=== PATIENT | male | born 1955 | race Caucasian/White ===

== ENCOUNTER 2020-10-15 10:53 | Outpatient (REF) | payer MEDICARE, SELFPAY ==
[2020-10-15 14:36] LABS: Alanine Aminotransferase 29 U/L (0-40); Albumin Level 4.7 g/dL (3.5-5.0); Alkaline Phosphatase 70 U/L (39-117); Aspartate Amino Transferase 34 U/L (5-37); Bilirubin Direct 0.2 mg/dL (0.0-0.5); Bilirubin Total 0.5 mg/dL (0.0-1.0); Total Protein 7.1 g/dL (6.5-8.0)
[2020-10-17 18:51] LABS: Lutenizing Hormone 45.9 mIU/mL (1.6-15.2)
[2020-10-19 21:52] LABS: Testosterone, Total 443 ng/dL (250-1100)
[2020-10-21 22:42] LABS: Dihydrotestosterone 36 ng/dL (12-65); Progesterone 0.1 ng/mL
[2020-10-24 00:17] LABS: Estradiol Free 0.48 pg/mL; Estradiol, Ultrasensitive 31 pg/mL
== END 2020-10-15 10:54 | disposition home or self-care (01) ==
LOC: HO.HMGCLDS 10:53
PROVIDERS: PCP Internal Medicine; Visit Provider Nurse Practitioner Family
DX: N63.0 Unspecified lump in unspecified breast (principal)
CPT/HCPCS: 36415; 80076; 82642; 82670; 82672; 82681; 83002; 84144; 84403

== ENCOUNTER 2020-11-02 12:46 | Outpatient (REF) | payer MEDICARE, SELFPAY ==
--- NOTE | ~2020-11-02 | US_ITS ---
EXAMINATION: US DIAGNOSTIC ULTRASOUND BREAST, RIGHT US DIAGNOSTIC ULTRASOUND BREAST, LEFT CLINICAL INFORMATION: 65-year-old male with fullness and tenderness subareolar right breast for 3-4 months. No discharge. No known family history breast cancer. COMPARISON: Bilateral targeted breast ultrasound 04/22/2011. TECHNIQUE: Ultrasound of the bilateral breasts is performed with real-time robert scale imaging and color Doppler. Exam is targeted to the periareolar and subareolar regions on both sides. Patient declined 3D digital breast tomosynthesis. FINDINGS: Right: There is borderline subareolar gynecomastia pattern immediately beneath the nipple. There is no cystic or solid mass or duct ectasia. No hyperemia. No architectural abnormality. No skin thickening or edema tracking in the soft tissue planes. Left: There is no solid mass, architectural abnormality, duct ectasia, or edema in the soft tissue planes. Results are discussed with the patient at time of visit. US/US breast RT limited IMPRESSION: 1. Right: Mild/trace subareolar gynecomastia. 2. Left: Unremarkable. ASSESSMENT: BI-RADS 2: Benign RECOMMENDATION: Patient should be managed based on the clinical impression as needed. If clinically indicated, further evaluation may be considered with surgical consult. Decision to proceed with biopsy should be based on clinical grounds and degree of clinical concern.
--- NOTE | ~2020-11-02 | US_ITS ---
EXAMINATION: US DIAGNOSTIC ULTRASOUND BREAST, RIGHT US DIAGNOSTIC ULTRASOUND BREAST, LEFT CLINICAL INFORMATION: 65-year-old male with fullness and tenderness subareolar right breast for 3-4 months. No discharge. No known family history breast cancer. COMPARISON: Bilateral targeted breast ultrasound 04/22/2011. TECHNIQUE: Ultrasound of the bilateral breasts is performed with real-time robert scale imaging and color Doppler. Exam is targeted to the periareolar and subareolar regions on both sides. Patient declined 3D digital breast tomosynthesis. FINDINGS: Right: There is borderline subareolar gynecomastia pattern immediately beneath the nipple. There is no cystic or solid mass or duct ectasia. No hyperemia. No architectural abnormality. No skin thickening or edema tracking in the soft tissue planes. Left: There is no solid mass, architectural abnormality, duct ectasia, or edema in the soft tissue planes. Results are discussed with the patient at time of visit. US/US breast LT limited IMPRESSION: 1. Right: Mild/trace subareolar gynecomastia. 2. Left: Unremarkable. ASSESSMENT: BI-RADS 2: Benign RECOMMENDATION: Patient should be managed based on the clinical impression as needed. If clinically indicated, further evaluation may be considered with surgical consult. Decision to proceed with biopsy should be based on clinical grounds and degree of clinical concern.
== END 2020-11-02 12:47 | disposition home or self-care (01) ==
LOC: HO.MAMMO 12:46
PROVIDERS: Visit Provider Internal Medicine
DX: N64.4 Mastodynia (principal)
CPT/HCPCS: 76642

== ENCOUNTER 2020-12-08 09:25 | Outpatient (REF) | payer MEDICARE, SELFPAY ==
[2020-12-08 12:20] LABS: Alanine Aminotransferase 25 U/L (0-40); Albumin Level 4.7 g/dL (3.5-5.0); Alkaline Phosphatase 81 U/L (39-117); Anion Gap 15 (12-20); Aspartate Amino Transferase 33 U/L (5-37); Bilirubin Total 0.6 mg/dL (0.0-1.0); Blood Urea Nitrogen 19 mg/dL (9-16); Calcium 9.7 mg/dL (8.4-10.2); Carbon Dioxide 24 mmol/L (22-29); Chloride 106 mmol/L (96-108); Cholesterol 250 mg/dL; Estimated Glomerular Filt Rate > 60; Glucose Fasting 98 mg/dL (60-99); HDL Cholesterol 59 mg/dL; LDL Cholesterol Calculated 172 mg/dl; Potassium 4.2 mmol/L (3.3-5.1); Sodium 141 mmol/L (135-145); TSH reflex Free T4 0.83 uIU/mL (0.32-4.0); Total Protein 7.3 g/dL (6.5-8.0); Triglycerides 97 mg/dL
== END 2020-12-08 09:26 | disposition home or self-care (01) ==
LOC: HO.HMGCLDS 09:25
PROVIDERS: PCP Internal Medicine; Visit Provider Internal Medicine
DX: N62 Hypertrophy of breast (principal); E78.5 Hyperlipidemia, unspecified; E22.8 Other hyperfunction of pituitary gland; N50.9 Disorder of male genital organs, unspecified
CPT/HCPCS: 36415; 80053; 80061; 84443

== ENCOUNTER 2024-03-28 15:09 | Outpatient (AMB) | payer MEDICARE, SELFPAY ==
--- NOTE | 2024-03-28 15:15 | AM.OFFWIN_ITS ---
Intake Vital Signs 03/28/24 15:16 Height 5 ft 5 in Weight 144 lb BMI 24.0 BP 118/70 Blood Pressure Location Rt brachial Position Sitting Pulse 81 Pulse Source Pulse Oximeter Temp 97.9 F Temp Source Oral Pulse Oximetry (%) 97 Oxygen Delivery Method Room Air Intake Visit Reasons: EP- Bloody nose, non stop Intake Note: pt c/o bloody nose. Started around noon today. Intermittent Patient Tobacco Use Status: Never used Tobacco Allergies No Known Allergies Allergy (Mild, Verified 03/28/24 15:25) NO REACTIONS KNOWN Do you need a note to return to daycare/school/sports/work: No HPI HPI Comments History of Present Illness Details Patient is a 69-year-old male complaining of a nosebleed on the right side that started this morning. He states gets them every now and then because he cracked his nose and picks at it a lot. He has used a rhino rocket in the past with success but he ran out and ordered more on [employer] but they will not be here something similar at [facility] but he is concerned because it is still bleeding. Patient states he does use a humidifier at night. [facility] Social History Alcohol intake: former Patient Tobacco Use Status: Never used Tobacco Review of Systems Const All systems reviewed & are unremarkable except as noted in HPI and below Physical Exam Vital Signs: Last Vital Signs Temp 97.9 F 03/28/24 15:16 Pulse 81 03/28/24 15:16 BP 118/70 03/28/24 15:16 Pulse Ox 97 03/28/24 15:16 Oxygen Delivery Method Room Air 03/28/24 15:16 BMI result Body Mass Index 24.0 Const General: cooperative, healthy appearing, comfortable, no acute distress and well developed Orientation/consciousness: patient oriented x3 Limitations: no limitations HEENT Head: Yes normal to inspection General nose exam: Normal external nose present and Epistaxis present on the right dried blood present and source not visualized; no active bleeding Eyes General: appearance normal, both eyes and all related structures Neck Neck: Yes normal visual inspection and Yes full ROM Resp Effort & Inspection: normal respiratory effort and able to speak in complete sentences Skin General skin exam: no rashes or lesions noted Neuro General: patient oriented x3 Extrem General: Yes normal to inspection Assessment & Plan Assessment & Plan (1) Epistaxis: Code(s): R04.0 - Epistaxis Plan: As bleeding has stopped for his exam, recommended he use the product he purchased at the drug store if it starts again, it is likely an anterior bleed as a posterior would not stop bleeding. Educated patient about this, recommended using a nasal saline spray as well as keeping the nasal passages mo ist and not picking at it. Plan See above Coding Level of Care Code Est Pt Level 3 (17429) Diagnoses Epistaxis R04.0
[2024-03-28 15:16] VITALS: BP 118/70; PULSE 81; TEMP 36.6; O2SAT 97; BMI 24.0
== END 2024-03-28 15:42 | disposition home or self-care (01) ==
PROVIDERS: PCP Internal Medicine; Visit Provider Physician Assistant
DX: R04.0 Epistaxis (principal)
CPT/HCPCS: 99213

== ENCOUNTER 2025-02-20 16:18 | Outpatient (AMB) | payer MEDICARE, SELFPAY ==
[2025-02-20 16:21] VITALS: BP 122/88; PULSE 82; TEMP 36.8; O2SAT 97; BMI 24.5
--- NOTE | 2025-02-20 16:21 | AM.OFFWIN_ITS ---
Intake Vital Signs 02/20/25 16:21 Height 5 ft 5 in Weight 147 lb BMI 24.5 BP 122/88 Blood Pressure Location Lt brachial Position Sitting Pulse 82 Pulse Source Pulse Oximeter Temp 98.3 F Temp Source Oral Pulse Oximetry (%) 97 Oxygen Delivery Method Room Air Intake Visit Reasons: EP Itchy, LT eye Intake Note: Patient presents left eye redness and itching. States he rubbed the eye quite a bit and did yard work yesterday Patient Tobacco Use Status: Never used Tobacco Special Education Paraeducator Required: No Allergies No Known Allergies Allergy (Mild, Verified 02/20/25 16:26) NO REACTIONS KNOWN Do you need a note to return to daycare/school/sports/work: No HPI HPI Comments History of Present Illness0 Details History of Present Illness - The patient is a 70-year-old male pres enting with itchy, watery eyes and a sty on the eyelid. - Reports of itchy, watery eyes for a fe w days, likely due to allergies. - Frequent rubbing of the eyes has led t o soreness and swelling. - Development of a sty on the eyelid, wi th mild swelling and pus. - Possible eye irritation from pulling w eeds without gloves. - Warm compresses have been used to redu ce swelling. - Had some relief and the swelling has g one down - He denies fever, chills, CP, SOB, ear pain, sore throat, runny nose, cold symptoms. - He denies FB, visual changes, or blurr y vision, or eye pain. Physical Exam General: Cooperative, healthy appearing, comfortable, no acute distress and well developed Ears: Hearing grossly normal bilaterally Nose: Normal Nxternal nose present Eyes: DAJA bilaterally. EOMI bilaterally. Sclera is white, conjunctiva is pink bilaterally. No discharge noted. No tearing noted. Small hordeolum noted on the left lower outer eyelid with erythema noted. Respiratory: Normal respiratory effort and able to speak in complete sentences. Clear to auscultation bilaterally Cardiovascular: Regular rate and rhythm. Normal S1 and S2 Patient was informed and verbally consented to the use of an ambient scribe for clinic note documentation during this visit. [facility] Social History Alcohol intake: former Patient Tobacco Use Status: Never used Tobacco Review of Systems Const All systems reviewed & are unremarkable except as noted in HPI and below Physical Exam Vital Signs: Last Vital Signs Temp 98.3 F 02/20/25 16:21 Pulse 82 02/20/25 16:21 BP 122/88 02/20/25 16:21 Pulse Ox 97 02/20/25 16:21 Oxygen Delivery Method Room Air 02/20/25 16:21 BMI result Body Mass Index 24.5 Assessment & Plan Assessment & Plan (1) Hordeolum externum (stye): Code(s): H00.019 - Hordeolum externum unspecified eye, unspecified eyelid Qualifiers: Laterality: left Eyelid: lower Qualified Code(s): H00.015 - Hordeolum externum left lower eyelid (2) Itchy eyes: Code(s): H57.9 - Unspecified disorder of eye and adnexa Plan Plan - Warm compresses recommended for the sty to reduce swelling and promote drainage. - Antibiotic eye drops prescribed to treat the sty and prevent infection. - [id number] antihistamines like Cetirizine or Loratadine suggested for allergy relief. - Allergy eye drops considered to alleviate symptoms of itchy, watery eyes. Medications: New cetirizine-pseudoephedrine 5-120 mg ER 1 tab PO BID 14 tabs 0RF 7 days polymyxin B sulf-trimethoprim 10,000 unit- 1 mg/mL while awake 2 drps ophthalmic-Right QID 10 mL 0RF 5 days Coding Level of Care Code Est Pt Level 3 (34845) Diagnoses Hordeolum externum of left lower eyelid H00.015 Laterality: left Eyelid: lower Itchy eyes H57.9
== END 2025-02-20 16:54 | disposition home or self-care (01) ==
PROVIDERS: PCP Internal Medicine; Visit Provider Physician Assistant Medical
DX: H00.015 Hordeolum externum left lower eyelid (principal); H57.9 Unspecified disorder of eye and adnexa

== ENCOUNTER → 2025-02-20 16:18 | Outpatient (BNVA) | payer MEDICARE, SELFPAY | PROVIDERS: PCP Internal Medicine; Visit Provider Physician Assistant Medical | DX: H00.015 Hordeolum externum left lower eyelid (principal); H57.9 Unspecified disorder of eye and adnexa | CPT/HCPCS: 99212 ==